=== PATIENT | female | born 1980 | race Caucasian/White ===

== ENCOUNTER → 2017-07-09 | Outpatient (CLI) | payer BC ==
[2016-05-12 11:00] VITALS: BP 124/66
[~2017-07-09] MED LIST: FEXO1TAB31 PO; LACT1CAP8 PO; MULT1TAB52 PO; NORE-81 PO; OMEG1CAP27 PO; OXYC1TAB9 PO; PHEN-444 PO; RANI300C PO; TAMS0.4C97 PO
--- NOTE | 2017-07-09 15:01 | RAD ---
Acute abdominal series without comparison for flank pain, chronic left-sided flank pain, history of kidney stones, asthma, gastroesophageal reflux, and atrial fibrillation. Findings: Lungs are clear. Cardiomediastinum is grossly unremarkable. There is scattered abdominal bowel gas in a nonobstructive pattern with a moderate amount of stool throughout. A double-J ureteral stent is present on the left. There are a couple of calcifications adjacent to the stent on the left, likely corresponding to mid ureteral calcifications. Several calcifications in the pelvis are likely phleboliths. There is bony spina bifida occulta at L5. No other osseous abnormalities are evident. Impression: 1. No acute cardiopulmonary normality. 2. Nonobstructive nonspecific bowel gas pattern. 3. Left double-J ureteral stent. 2. 4 mm calcifications in close proximity likely represent left midureteral calculi.
== END | disposition home or self-care (01) ==
LOC: RAD 12:32
PROVIDERS: ATTEND Obstetrics & Gynecology
DX: R10.9 Unspecified abdominal pain (principal)
CPT/HCPCS: 74022

== ENCOUNTER → 2017-07-19 | Outpatient (CLI) | payer BC ==
[2016-05-12 11:00] VITALS: BP 124/66
--- NOTE | 2017-07-19 16:59 | [facility]IC ---
MRI Cervical Spine Without Contrast History: Neck pain Technique: Multiplanar, multi sequential noncontrast MR imaging was performed of the cervical spine. Comparison: None Findings: There is motion degradation. Cervical vertebral body stature and AP alignment are maintained. There is mild degenerative disc disease C4-5 and C5-6. Cervical cord caliber is within normal limits without convincing focal signal abnormality allowing for artifact. There is no significant abnormality of the cervical medullary junction. There is no significant marrow edema. Small cystic foci in the neural foramina such as bilaterally at C7-T1 and C6-7 are likely due to small nerve root sleeve cysts. C2-C3: Neural foramina and spinal canal are adequate. C3-C4: Neural foramina and spinal canal are adequate. C4-C5: Neural foramina and spinal canal are adequate. C5-C6: There is negligible disc osteophyte complex and bulge. Central canal is adequate 11 mm. Neural foramina are adequate. C6-C7: Neural foramina and spinal canal are adequate. C7-T1: Neural foramina and spinal canal are adequate. Impression: 1. There is no significant cervical spinal stenosis or neural foramina compromise. There is mild degenerative disc disease at C4-5 and C5-6, minimal spondylosis at C5-C6. Electronically signed by: Elie Mccall MD (07/19/2017 4:55 PM) [id number]
== END | disposition home or self-care (01) ==
LOC: KCIC MRI 15:54
PROVIDERS: ATTEND Neurological Surgery
DX: M50.321 Other cervical disc degeneration at C4-C5 level (principal); M50.322 Other cervical disc degeneration at C5-C6 level; M50.323 Other cervical disc degeneration at C6-C7 level; M47.892 Other spondylosis, cervical region
CPT/HCPCS: 72141